=== PATIENT | female | born 1970 | race Caucasian/White ===

== ENCOUNTER → 2018-10-04 | Outpatient (CLI) | payer OTHER ==
--- NOTE | 2018-10-05 09:50 | KCIC ---
MRI Lumbar Spine without contrast History: Low back pain, right sided pain since a fall April 2018 Technique: Multiplanar, multi sequential noncontrast MR imaging was performed of the lumbar spine. Comparison: None Findings: Lumbar vertebral body stature and AP alignment are maintained. Intervertebral disc spaces are overall adequate of the lumbar spine. There is moderate degenerative disc disease at T11-12, degenerative endplate change at this level. Conus terminates at L2. There is no significant marrow edema. L2-L3: Neural foramina and spinal canal are adequate. L3-L4: Spinal canal and neural foramina are adequate. L4-L5: Neural foramina and spinal canal are adequate. L5-S1: Neural foramina and spinal canal are adequate. There is hemangioma of the posterior right S1 vertebral body. Impression: 1. There is no significant lumbar spinal stenosis or neural foramina compromise. Electronically signed by: Hitesh Eden MD (10/05/2018 8:12 AM) [id number]
== END | disposition home or self-care (01) ==
LOC: KCIC MRI 17:16
PROVIDERS: ATTEND Nurse Practitioner Family
DX: M51.34 Other intervertebral disc degeneration, thoracic region (principal); M54.17 Radiculopathy, lumbosacral region; D18.09 Hemangioma of other sites
CPT/HCPCS: 72148